=== PATIENT | male | born 1970 | race Caucasian/White ===

== ENCOUNTER 2024-07-28 08:36 | Outpatient (AMB) | payer OTHER, SELFPAY ==
--- NOTE | 2024-07-28 08:37 | A.OFFVIS_ITS ---
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 Pt states his pain is at a 5 usually and states the pain shoots to his left buttock. Pt also states he has numbness and tingling in his right great toe. Allergies No Known Allergies Allergy (Verified 07/28/24 08:38) Medication List - Last Reconciled 07/28/24 by Kiana George MD baclofen 5 mg PO TID duloxetine 60 mg PO DAILY gabapentin 600 mg PO TID meloxicam 15 mg PO DAILY HPI Comments Details: Prior to injury, did not have any similar severe back pain. After injury, he's been having lower back, mostly right side, can go to left buttocks, can radiate to the big toe. Reports burning and numbness on right big toe, constant. Worse burning on the right foot/big toe when he sits. Feels weakness going up the stairs. Limps when he walks a lot. Been going to PT. Walking improved with exercise and PT. Treatment done so far: PT Chronic medications such as baclofen and gabapentin, for chronic neck pain. History of cervical spine surgery in [place] 7 years ago. Reviewed notes from PT, last seen 07/13/2024. Per notes, x-ray was done at the ER which showed disc space narrowing L5-S1. [facility] Medical History (Updated 07/28/24 @ 09:17 by Kiana George MD) Lumbar disc herniation with radiculopathy Acute lumbar radiculopathy Review of Systems Const All systems reviewed & are unremarkable except as noted in HPI and below Physical Exam Constitutional: Patient appears to be in no acute distress, well nourished and well developed. Patient was appropriately conversant and oriented. Good historian. MSK: No specific abnormalities found on inspection of the spine and all extremities. No pain with palpation over the lumbar area. Lumbar ROM was full. Bilateral hip, knee and ankle ROM WNL. No ligamentous laxity or crepitance. No increased effusion. Straight-leg raising test positive right. FABERE test positive right. Right big toe/EHL 4/5 only. No increased tone noted. Neurological: Right big toe/EHL 4/5 only. Rest of MMT 5/5. Britton?s negative bilaterally. Babinski was down going bilaterally. Clonus was negative. Gait is non-antalgic without loss of balance. Results Reviewed Results Reviewed: I reviewed records from the following: PCP PT notes Assessment & Plan Assessment & Plan (1) Acute lumbar radiculopathy: Code(s): M54.16 - Radiculopathy, lumbar region Category: Medical (2) Lumbar disc herniation with radiculopathy: Code(s): M51.16 - Intervertebral disc disorders with radiculopathy, lumbar region Category: Medical Plan Suspect he had acute lumbar radiculopathy from lumbar disc herniation, affecting right L5 nerve root. He has weakness in right big toe extension. Although his pain and walking has improved with PT, we would need further imaging for prognostication and return to work goals. Patient had undergone adequate conservative management including [PT] without complete improvement of condition. It would be reasonable to obtain further imaging such as MRI. An MRI would help rule out any serious condition, guide treatment and assess prognosis for recovery. Specifically ruling out right L5-S1 disc herniation. Continue PT and current medications for now. Out of work for now until we get an MRI. Assessment and plan discussed with patient, and patient was agreeable. All questions were answered thoroughly. Follow up in 4 weeks or after MRI. Kiana George MD, HENRI Board Certified, [place] Board [employer] and Rehabilitation (ABPMR) Board Certified, [place] Board [employer] Electrodiagnostic Medicine (ABEM) Orders: Orders MR lumbar spine wo con Today M51.16 - Intervertebral disc disorders with radiculopathy, lumbar region, M54.16 - Radiculopathy, lumbar region Coding Level of Care Code New Pt Level 4 (43669) Diagnoses Acute lumbar radiculopathy M54.16 Lumbar disc herniation with radiculopathy M51.16
== END 2024-07-28 09:08 | disposition home or self-care (01) ==
PROVIDERS: PCP Physician Assistant Medical; Visit Provider Physical Medicine & Rehabilitation
DX: M51.16 Intervertebral disc disorders with radiculopathy, lumbar region (principal)
CPT/HCPCS: 99204

== ENCOUNTER → 2024-07-28 08:36 | Outpatient (BNVA) | payer OTHER, SELFPAY | PROVIDERS: PCP Physician Assistant Medical; Visit Provider Physical Medicine & Rehabilitation | DX: M51.16 Intervertebral disc disorders with radiculopathy, lumbar region (principal) | CPT/HCPCS: 99202 ==

== ENCOUNTER 2024-08-06 10:04 | Outpatient (REF) | payer OTHER, MEDICAID, SELFPAY ==
--- NOTE | ~2024-08-06 | MR_ITS ---
EXAMINATION: MR LUMBAR SPINE WITHOUT CONTRAST CLINICAL INFORMATION: Low back pain, rule out L5-S1 disc herniation. Radiation/radicular symptoms to right leg and toes. COMPARISON: No prior available. TECHNIQUE: Multiplanar multisequence MR imaging of the lumbar spine was done without IV contrast. Examination performed on a 1.5 Keyla Siemens magnet. Standard sequences utilized. Please note, due to [facility] contractual, systems, and staffing issues, an [facility] radiologist was not available for review and dictation of this case until 08/21/2024. FINDINGS: CORONAL ALIGNMENT: There is a trace dextroconvex scoliosis. This could be positional. SAGITTAL ALIGNMENT: -Mild straightening of the normal lordosis. -There is a 4 mm retrolisthesis L4 on L5. -Alignment otherwise anatomic. LUMBOSACRAL JUNCTION: -Normal. There are 5 egc-kuo-omzmrao lumbar-type vertebral bodies. VERTEBRAL BODIES/BONE MARROW: -There are no compression deformities. -There are prominent edematous endplate changes present at L4-5 and L5-S1. -No abnormal infiltrating or suspicious bone marrow signal. DISCS: -Severe loss of disc height and signal L5-S1 with disc vacuum. -Moderate loss of disc height and signal at L4-5 with disc vacuum. -Disc levels above L4 are normal. SPINAL CANAL: -No abnormal developmental findings. CONUS MEDULLARIS: -Terminates at L1. Morphology and signal is normal. INTRADURAL NERVE ROOTS: -Within normal limits. No masses or clumping. Axial Disc Space Images: T12-L1: No central canal or neural foraminal narrowing. Normal facets. L1-L2: No central canal or neural foraminal narrowing. Normal facets. L2-L3: Subtle bilateral foraminal protrusions of disc material with mild annular fissuring. Mild hypertrophic facet changes bilaterally. No central canal or neural foraminal narrowing. L3-L4: Subtle bilateral left greater than right foraminal protrusions of disc material with associated annular fissuring. There are mild to moderate hypertrophic degenerative facet changes bilaterally, with mild posterior ligamentous infolding/thickening. Combination of findings is resulting in mild central canal narrowing, mild bilateral subarticular recess narrowing, and mild right and menx-ii-lkuvcjri left neural foraminal narrowing. There is contact with no significant deviation of the exiting left L3 root. L4-L5: 4 mm retrolisthesis at this level. Moderate degenerative hypertrophic facet changes bilaterally with bilateral facet joint effusions. Diffuse bulging disc present concentrically involving both foraminal zones with right para midline annular fissuring and a right lateral associated small extrusion of disc material with inferior migration to the superior third of the L5 vertebral body. (Sagittal series 6, image 8). There is posterior ligamentous thickening/infolding. Combination of findings results in zcwm-xc-uikvlqjx central canal stenosis, moderate bilateral subarticular recess stenosis with contact and mild deviation of the right greater than left traversing L5 roots. There is moderate to severe left and moderate right neural foraminal narrowing. There is contact and possible mild impingement of the exiting LEFT L4 root. Mild contact with no definite impingement of the exiting RIGHT L4 root. L5-S1: There is a diffuse disc osteophytic bulge extending into both foraminal zones and bilateral lateral to foramen. There is a superimposed right paracentral, lateral, and proximal foraminal extrusion of disc material. There are mild to moderate hypertrophic degenerative facet changes with mild posterior ligamentous infolding. There is mass effect and deviation of the traversing right S1 root within the subarticular recess. There is severe right greater than left neural foraminal encroachment with flattening and impingement of the exiting right L5 root and mild mass effect with probable mild impingement of the exiting left L5 root. IMAGED SI JOINTS: Mild to moderate degenerative arthrosis. PARAVERTEBRAL AND INCLUDED EXTRASPINAL SOFT TISSUES: Normal. Limited by a saturation band. No abnormalities observed. MR/MR lumbar spine wo con IMPRESSION: 1. Lumbar spondylosis relatively confined to L4-5 and L5-S1. Significant disc protrusions/extrusions at these levels. Mass effect upon several nerve roots bilaterally, worse on the right. See above for details. 2. Edematous endplate changes at L4-5 and L5-S1. Severe associated disc degeneration greater at L5-S1. 3. There is a 4 mm, grade 1, anterolisthesis L4 on L5 which appears based upon degenerative disc and facet changes. 4. Refer to the body of the report for details and ancillary findings. Electronically signed by: Alessio Rosenthal MD 08/21/2024 10:58 AM EDT
== END 2024-08-06 10:05 | disposition home or self-care (01) ==
LOC: HO.MRI 10:04
PROVIDERS: PCP Internal Medicine; Visit Provider Physical Medicine & Rehabilitation
DX: M51.16 Intervertebral disc disorders with radiculopathy, lumbar region (principal)
CPT/HCPCS: 72148

== ENCOUNTER → 2024-08-06 10:15 | Outpatient (BNV) | payer OTHER, MEDICAID, SELFPAY | PROVIDERS: PCP Internal Medicine; Visit Provider Radiology Diagnostic Radiology | DX: M54.50 Low back pain, unspecified (principal) | CPT/HCPCS: 72148 ==

== ENCOUNTER 2024-08-26 09:47 | Outpatient (AMB) | payer OTHER, MEDICAID, SELFPAY ==
--- NOTE | 2024-08-26 09:55 | MHC.OFFVIS ---
Intake Visit Reasons: OV low back/sciatica pain Intake Note: Kirk is a 54 year old male who presents to the office today for a MRI review of his lumbar spine. MRI done on 08/06/24. Pt states he is still having pain, no changes at the moment. Allergies No Known Allergies Allergy (Verified 08/26/24 10:11) HPI Comments Details: Prior to injury, did not have any similar severe back pain. After injury, he's been having lower back, mostly right side, can go to left buttocks, can radiate to the big toe. Reports burning and numbness on right big toe, constant. Worse burning on the right foot/big toe when he sits. Feels weakness going up the stairs. Limps when he walks a lot. Been going to PT. Walking improved with exercise and PT. Treatment done so far: PT Chronic medications such as baclofen and gabapentin, for chronic neck pain. History of cervical spine surgery in [place] 7 years ago. Reviewed notes from PT, last seen 07/13/2024. Per notes, x-ray was done at the ER which showed disc space narrowing L5-S1. Here to discuss MRI. Same pain level. Noted more weakness on right toes. [facility] Medical History (Updated 07/28/24 @ 09:17 by Kiana George MD) Lumbar disc herniation with radiculopathy Acute lumbar radiculopathy Physical Exam Constitutional: Patient appears to be in no acute distress, well nourished and well developed. Patient was appropriately conversant and oriented. Good historian. MSK: No specific abnormalities found on inspection of the spine and all extremities. Indicates pain on lumbar area, denies pain on SI joint or GT. Lumbar ROM was full. Bilateral hip, knee and ankle ROM WNL. No ligamentous laxity or crepitance. No increased effusion. Straight-leg raising test positive right. FABERE test positive right. Right big toe/EHL 4/5 only. No increased tone noted. Neurological: Right big toe/EHL 4/5 only. Rest of MMT 5/5. Britton?s negative bilaterally. Babinski was down going bilaterally. Clonus was negative. Gait is non-antalgic without loss of balance. Results Reviewed Results Reviewed: We were able to look at images together. Disc extrusion could be seen right L4-5, herniation/bulge L5-S1. Ordering Physician: Kiana Peck Date of Service: 08/06/24 Procedure(s): MR lumbar spine wo con Accession Number(s): [id number] cc: Jairon Hines III, MD; Kiana Peck~ EXAMINATION: MR LUMBAR SPINE WITHOUT CONTRAST CLINICAL INFORMATION: Low back pain, rule out L5-S1 disc herniation. Radiation/radicular symptoms to right leg and toes. COMPARISON: No prior available. TECHNIQUE: Multiplanar multisequence MR imaging of the lumbar spine was done without IV contrast. Examination performed on a 1.5 Keyla Siemens magnet. Standard sequences utilized. Please note, due to [facility] contractual, systems, and staffing issues, an [facility] radiologist was not available for review and dictation of this case until 08/21/2024. FINDINGS: CORONAL ALIGNMENT: There is a trace dextroconvex scoliosis. This could be positional. SAGITTAL ALIGNMENT: -Mild straightening of the normal lordosis. -There is a 4 mm retrolisthesis L4 on L5. -Alignment otherwise anatomic. LUMBOSACRAL JUNCTION: -Normal. There are 5 nfr-cab-pzsgklu lumbar-type vertebral bodies. VERTEBRAL BODIES/BONE MARROW: -There are no compression deformities. -There are prominent edematous endplate changes present at L4-5 and L5-S1. -No abnormal infiltrating or suspicious bone marrow signal. DISCS: -Severe loss of disc height and signal L5-S1 with disc vacuum. -Moderate loss of disc height and signal at L4-5 with disc vacuum. -Disc levels above L4 are normal. SPINAL CANAL: -No abnormal developmental findings. CONUS MEDULLARIS: -Terminates at L1. Morphology and signal is normal. INTRADURAL NERVE ROOTS: -Within normal limits. No masses or clumping. Axial Disc Space Images: T12-L1: No central canal or neural foraminal narrowing. Normal facets. L1-L2: No central canal or neural foraminal narrowing. Normal facets. L2-L3: Subtle bilateral foraminal protrusions of disc material with mild annular fissuring. Mild hypertrophic facet changes bilaterally. No central canal or neural foraminal narrowing. L3-L4: Subtle bilateral left greater than right foraminal protrusions of disc material with associated annular fissuring. There are mild to moderate hypertrophic degenerative facet changes bilaterally, with mild posterior ligamentous infolding/thickening. Combination of findings is resulting in mild central canal narrowing, mild bilateral subarticular recess narrowing, and mild right and banh-ht-mgrepihi left neural foraminal narrowing. There is contact with no significant deviation of the exiting left L3 root. L4-L5: 4 mm retrolisthesis at this level. Moderate degenerative hypertrophic facet changes bilaterally with bilateral facet joint effusions. Diffuse bulging disc present concentrically involving both foraminal zones with right para midline annular fissuring and a right lateral associated small extrusion of disc material with inferior migration to the superior third of the L5 vertebral body. (Sagittal series 6, image 8). There is posterior ligamentous thickening/infolding. Combination of findings results in wktn-vc-qdzqazps central canal stenosis, moderate bilateral subarticular recess stenosis with contact and mild deviation of the right greater than left traversing L5 roots. There is moderate to severe left and moderate right neural foraminal narrowing. There is contact and possible mild impingement of the exiting LEFT L4 root. Mild contact with no definite impingement of the exiting RIGHT L4 root. L5-S1: There is a diffuse disc osteophytic bulge extending into both foraminal zones and bilateral lateral to foramen. There is a superimposed right paracentral, lateral, and proximal foraminal extrusion of disc material. There are mild to moderate hypertrophic degenerative facet changes with mild posterior ligamentous infolding. There is mass effect and deviation of the traversing right S1 root within the subarticular recess. There is severe right greater than left neural foraminal encroachment with flattening and impingement of the exiting right L5 root and mild mass effect with probable mild impingement of the exiting left L5 root. IMAGED SI JOINTS: Mild to moderate degenerative arthrosis. PARAVERTEBRAL AND INCLUDED EXTRASPINAL SOFT TISSUES: Normal. Limited by a saturation band. No abnormalities observed. MR/MR lumbar spine wo con IMPRESSION: 1. Lumbar spondylosis relatively confined to L4-5 and L5-S1. Significant disc protrusions/extrusions at these levels. Mass effect upon several nerve roots bilaterally, worse on the right. See above for details. 2. Edematous endplate changes at L4-5 and L5-S1. Severe associated disc degeneration greater at L5-S1. 3. There is a 4 mm, grade 1, anterolisthesis L4 on L5 which appears based upon degenerative disc and facet changes. 4. Refer to the body of the report for details and ancillary findings. Electronically signed by: Alessio Rosenthal MD 08/21/2024 10:58 AM EDT RP Assessment & Plan Assessment & Plan (1) Lumbar disc herniation with radiculopathy: Code(s): M51.16 - Intervertebral disc disorders with radiculopathy, lumbar region Category: Medical (2) Acute lumbar radiculopathy: Code(s): M54.16 - Radiculopathy, lumbar region Category: Medical Plan Given MRI findings and worsening weakness in right foot, it would be reasonable to refer him to Neurosurgery to evaluate surgical options at this point. He has undergone necessary conservative management including PT. if surgery is not recommended, then patient will consider lumbar injections. Assessment and plan discussed with patient, and patient was agreeable. All questions were answered thoroughly. Kiana George MD, HENRI Board Certified, [place] Board [employer] and Rehabilitation (ABPMR) Board Certified, [place] Board [employer] Electrodiagnostic Medicine (ABEM) Orders: Referrals Neurosurgery Referral M51.16 - Intervertebral disc disorders with radiculopathy, lumbar region, M54.16 - Radiculopathy, lumbar region Coding Level of Care Code Est Pt Level 4 (18097) Diagnoses Lumbar disc herniation with radiculopathy M51.16 Acute lumbar radiculopathy M54.16
== END 2024-08-26 10:37 | disposition home or self-care (01) ==
PROVIDERS: PCP Physician Assistant Medical; Visit Provider Physical Medicine & Rehabilitation
DX: M51.16 Intervertebral disc disorders with radiculopathy, lumbar region (principal)
CPT/HCPCS: 99214

== ENCOUNTER → 2024-08-26 09:47 | Outpatient (BNVA) | payer OTHER, MEDICAID, SELFPAY | PROVIDERS: PCP Physician Assistant Medical; Visit Provider Physical Medicine & Rehabilitation | DX: M51.16 Intervertebral disc disorders with radiculopathy, lumbar region (principal) | CPT/HCPCS: 99212 ==

== ENCOUNTER 2025-02-04 08:19 | Outpatient (AMB) | payer OTHER, SELFPAY ==
--- NOTE | 2025-02-04 08:29 | A.OFFVIS_ITS ---
Vital Signs 02/04/25 08:38 Height 5 ft 8 in Weight 158 lb BMI 24.0 Intake Visit Reasons: WC - OV low back/sciatica pain Intake Note: Kirk 54 yr old male presents today for his W/C injury follow up visit for his lumbar disc herniation. At his last visit, it was discussed for patient to be seen with a neurologist and to consider injection if surgery is not recommend. Borwn verdin since his last visit he has seen Dr Tidwell at [facility] who recommended surgery and injection. Patient moved forward with cortisone injection about 1 week ago. Currently states he has not felt any different. Allergies No Known Allergies Allergy (Verified 02/04/25 08:39) Medication List - Last Reconciled 02/04/25 by Kiana George MD baclofen 5 mg PO TID duloxetine 60 mg PO DAILY escitalopram oxalate mg PO DAILY gabapentin 600 mg PO TID hydroxyzine HCl mg PO 3XD meloxicam 15 mg PO DAILY HPI Comments Details: Prior to injury, did not have any similar severe back pain. After injury, he's been having lower back, mostly right side, can go to left buttocks, can radiate to the big toe. Reports burning and numbness on right big toe, constant. Worse burning on the right foot/big toe when he sits. Feels weakness going up the stairs. Limps when he walks a lot. Treatment done so far: PT [facility] Chronic medications such as baclofen and gabapentin, for chronic neck pain. History of cervical spine surgery in [place] 7 years ago. Reviewed notes from PT, last seen 07/13/2024. Per notes, x-ray was done at the ER which showed disc space narrowing L5-S1. Given MRI findings and worsening weakness in right foot, I referred him to Neurosurgery to evaluate surgical options. He saw Dr. Jonah MALAGON who did recommend decompression surgery. Then Dr. Andersen who recommended a different approach, fusion, then also said trial injections and PT first prior to possible surgery. Then [facility] Reports that pain switched to left side, started 2 months after finished PT. Still with sensitivity on right foot/toes. He's been trying to stretching it out as taught from PT, which tends a lot. Pain seems to move around the back area. He has gone to [facility], already had epidural injection last week, no relief yet. As of work letter, I did write him extension of out of work note until seen today. He is interested to restart PT. [facility] Medical History (Updated 07/28/24 @ 09:17 by Kiana George MD) Lumbar disc herniation with radiculopathy Acute lumbar radiculopathy Social History (Updated 02/04/25 @ 08:41 by Jacqueline Myers [facility]) Current occupational status: unemployed Current occupation: rt hand Physical Exam Vital Signs: BMI result Body Mass Index 24.0 Constitutional: Patient appears to be in no acute distress, well nourished and well developed. Patient was appropriately conversant and oriented. Good historian. MSK: No specific abnormalities found on inspection of the spine and all extremities. Indicates pain on left lumbar area, but nontender to touch on spinous processes, facets, paraspinals, quadratus lumborum or SI joint. Lumbar ROM was full. Increased pain with extension. Bilateral hip, knee and ankle ROM WNL. No ligamentous laxity or crepitance. No increased effusion. Slump sit negative. 5/5 on lower extremities, including ankle dorsiflexion. No increased tone noted. Neurological: Britton?s negative bilaterally. Clonus was negative. Gait is non-antalgic without loss of balance. Results Reviewed Results Reviewed: Ordering Physician: Kiana Peck Date of Service: 08/06/24 Procedure(s): MR lumbar spine wo con Accession Number(s): [id number] cc: Jairon Hines III, MD; Kiana Peck~ EXAMINATION: MR LUMBAR SPINE WITHOUT CONTRAST CLINICAL INFORMATION: Low back pain, rule out L5-S1 disc herniation. Radiation/radicular symptoms to right leg and toes. COMPARISON: No prior available. TECHNIQUE: Multiplanar multisequence MR imaging of the lumbar spine was done without IV contrast. Examination performed on a 1.5 Keyla Siemens magnet. Standard sequences utilized. Please note, due to [facility] contractual, systems, and staffing issues, an [facility] radiologist was not available for review and dictation of this case until 08/21/2024. FINDINGS: CORONAL ALIGNMENT: There is a trace dextroconvex scoliosis. This could be positional. SAGITTAL ALIGNMENT: -Mild straightening of the normal lordosis. -There is a 4 mm retrolisthesis L4 on L5. -Alignment otherwise anatomic. LUMBOSACRAL JUNCTION: -Normal. There are 5 oys-bgf-mhenhgy lumbar-type vertebral bodies. VERTEBRAL BODIES/BONE MARROW: -There are no compression deformities. -There are prominent edematous endplate changes present at L4-5 and L5-S1. -No abnormal infiltrating or suspicious bone marrow signal. DISCS: -Severe loss of disc height and signal L5-S1 with disc vacuum. -Moderate loss of disc height and signal at L4-5 with disc vacuum. -Disc levels above L4 are normal. SPINAL CANAL: -No abnormal developmental findings. CONUS MEDULLARIS: -Terminates at L1. Morphology and signal is normal. INTRADURAL NERVE ROOTS: -Within normal limits. No masses or clumping. Axial Disc Space Images: T12-L1: No central canal or neural foraminal narrowing. Normal facets. L1-L2: No central canal or neural foraminal narrowing. Normal facets. L2-L3: Subtle bilateral foraminal protrusions of disc material with mild annular fissuring. Mild hypertrophic facet changes bilaterally. No central canal or neural foraminal narrowing. L3-L4: Subtle bilateral left greater than right foraminal protrusions of disc material with associated annular fissuring. There are mild to moderate hypertrophic degenerative facet changes bilaterally, with mild posterior ligamentous infolding/thickening. Combination of findings is resulting in mild central canal narrowing, mild bilateral subarticular recess narrowing, and mild right and osit-vi-ohyigpsu left neural foraminal narrowing. There is contact with no significant deviation of the exiting left L3 root. L4-L5: 4 mm retrolisthesis at this level. Moderate degenerative hypertrophic facet changes bilaterally with bilateral facet joint effusions. Diffuse bulging disc present concentrically involving both foraminal zones with right para midline annular fissuring and a right lateral associated small extrusion of disc material with inferior migration to the superior third of the L5 vertebral body. (Sagittal series 6, image 8). There is posterior ligamentous thickening/infolding. Combination of findings results in crpm-fs-fzhmivnv central canal stenosis, moderate bilateral subarticular recess stenosis with contact and mild deviation of the right greater than left traversing L5 roots. There is moderate to severe left and moderate right neural foraminal narrowing. There is contact and possible mild impingement of the exiting LEFT L4 root. Mild contact with no definite impingement of the exiting RIGHT L4 root. L5-S1: There is a diffuse disc osteophytic bulge extending into both foraminal zones and bilateral lateral to foramen. There is a superimposed right paracentral, lateral, and proximal foraminal extrusion of disc material. There are mild to moderate hypertrophic degenerative facet changes with mild posterior ligamentous infolding. There is mass effect and deviation of the traversing right S1 root within the subarticular recess. There is severe right greater than left neural foraminal encroachment with flattening and impingement of the exiting right L5 root and mild mass effect with probable mild impingement of the exiting left L5 root. IMAGED SI JOINTS: Mild to moderate degenerative arthrosis. PARAVERTEBRAL AND INCLUDED EXTRASPINAL SOFT TISSUES: Normal. Limited by a saturation band. No abnormalities observed. MR/MR lumbar spine wo con IMPRESSION: 1. Lumbar spondylosis relatively confined to L4-5 and L5-S1. Significant disc protrusions/extrusions at these levels. Mass effect upon several nerve roots bilaterally, worse on the right. See above for details. 2. Edematous endplate changes at L4-5 and L5-S1. Severe associated disc degeneration greater at L5-S1. 3. There is a 4 mm, grade 1, anterolisthesis L4 on L5 which appears based upon degenerative disc and facet changes. 4. Refer to the body of the report for details and ancillary findings. Electronically signed by: Alessio Rosenthal MD 08/21/2024 10:58 AM EDT RP Assessment & Plan Assessment & Plan (1) Lumbar disc herniation with radiculopathy: Code(s): M51.16 - Intervertebral disc disorders with radiculopathy, lumbar region Category: Medical (2) Acute lumbar radiculopathy: Code(s): M54.16 - Radiculopathy, lumbar region Category: Medical Plan The MRI was last done 08/06/2024, almost 6 months from now. On exam, I do not see anymore leg weakness. No red flags on exam. His pain has actually switched from right to left and back, which I suspect could be either muscular or SI joint imbalance contributing to pain. Different opinions have been obtained from different spine surgeons. He is waiting for a 3rd opinion. He has undergone a lumbar epidural injection just last week from [facility]. He is willing to return to physical therapy. None of the other doctors he has seen were willing to write his work note. If he was to stay with me, discussed what a outdoor guide outlook is. Also reassured that I have seen many patients wherein disc herniations have improved with nonsurgical treatment plan. So that would be the hope if he were to stay under my care. Referring him to physical therapy in [place], to work on any possible imbalance on SI joint and quadratus lumborum. Eventual goal is for work conditioning. Out of work note letter for 4 weeks, or until I see him again. Assessment and plan discussed with patient, and patient was agreeable. All questions were answered thoroughly. Follow up 4 weeks. Kiana George MD, HENRI Board Certified, [place] [employer] and [employer] (ABPMR) Board Certified, [place] [employer] Electro[employer] (ABEM) Orders: Orders PT Evaluation and Treatment Today M51.16 - Intervertebral disc disorders with radiculopathy, lumbar region, M54.16 - Radiculopathy, lumbar region Coding Level of Care Code Est Pt Level 4 (27350) Diagnoses Lumbar disc herniation with radiculopathy M51.16 Acute lumbar radiculopathy M54.16
[2025-02-04 08:38] VITALS: BMI 24.0
--- OUTSIDE RECORDS SUMMARY | 2025-02-04 08:42 | XMS_ITS | Encounter Summary ---
Author Organization [facility] Address [address] [place] [address] Care Team Providers Care C++ Quant Developer Name Role Phone Jairon Hines MD Primary Care Provider [phone] Reason for Visit * Reason Comments Annual Exam Last pe 08/2023, las t vision 2022, last dentist 2023, last colon 11/2023, last tdap, last flu Encounter Details Date Type Department Care Team (Late st Contact Info) Description 01/18/2025 3:00 PM EST Office Visit Adult Medicine [address] [address] Jairon Hnies MD [address] [place] [id number] Routine physical examination (Primary Dx); Screening for diabetes mellitus; Screening, lipid; Screening for malignant neoplasm of prostate; Need for vaccination against Streptococcus pneumoniae Social History Tobacco Use Types Packs/Day Years Used Date Smoking Tobacco: Every Day Cigarettes Smokeless Tobacco: Never Alcohol Use Standard Drinks/Week Comments No 0 (1 standard drink = 0.6 oz pur e alcohol) Housing Instability Answer Date Recorde d Are you worried that in the next 2 months you may not have stable housing? Yes 01/18/2025 Food Access & Nutrition Answer Date Rec orded Do you have access to a vari ety of food including fruits and vegetables? Yes 01/18/2025 Health Literacy Answer Date Recorded How often do you need to hav e someone help you when you read instructions, pamphlets, or other written material from your doctor or pharmacy? Sometimes 01/18/2025 Caregiver: How often do you need to have someone help you when you read instructions, pamphlets, or other written material from your doctor or pharmacy? Not on file 01/18/2025 Financial Risk Answer Date Recorded How hard is it for you to pa y for the very basics like food, housing, medical care, and air conditioning / heating? Hard 01/18/2025 Transportation Answer Date Recorded Has the lack of transportati on kept you from meetings, work, or from getting things needed for daily living? No Has the lack of transportati on kept you from medical appointments or from getting medications? No 01/18/2025 Social Isolation Answer Date Recorded How often do you feel lonely or isolated from th ose around you? Rarely 01/18/2025 Food Risk Answer Date Recorded Within the past 12 months we worried whether our food would run out before we got money to buy more. Patient declined 025 Within the past 12 months th e food we bought just didn't last and we didn't have money to get more. Patient declined 12/27 Dependent Care Answer Date Recorded Do you need help finding or paying for care for your loved ones. For example, children's zoo caretaker or elderly care for an older adult? No 01/18/2025 Education Answer Date Recorded Do you think completing more education or training, like finishing a GED, going to college, or learning a trade, would be helpful for you? Yes 01/18/2025 Employment and Income Answer Date Recor ded During the last four weeks, have you been actively looking for work? No 01/18/2025 Living Situation Answer Date Recorded What is your living situation? 0 01/18/2025 Sex and Gender Information Value Date Recorded Sex Assigned at Not on file Legal Sex Male 2:16 PM EST Gender Identity Not on file Sexual Orientation Not on file documented as of this encounter Last Filed Vital Signs Vital Sign Reading Time Taken Comments Blood Pressure 111/63 01/18/2025 3:07 PM EST Pulse 58 01/18/2025 3:07 PM EST Temperature 36.4 ??C (97.6 ??F) 01/18/2025 3:07 PM ES T Respiratory Rate - - Oxygen Saturation - - Inhaled Oxygen Concentration - - Weight 74.4 kg (164 lb) 01/18/2025 3:07 PM EST Height 174 cm (5' 8.5 ) 01/18/2025 3:07 PM EST Body Mass Index 24.57 01/18/2025 3:07 PM EST documented in this encounter Ordered Prescriptions Prescription Sig Dispense Quantity Refills Last Filled Start Date End Date meloxicam (MOBIC) 15 mg tabletIndications:R outine physical examination Take 1 tablet (15 mg total) by mouth 1 (one) time each day. 90 tablet 1 01/18/2025 documented in this encounter Progress Notes * Jairon Hines MD - 01/18/2025 3:00 PM EST CHIEF COMPLAINT: Annual Exam (Last pe 08/2023, last vision 2022, last dentist 2023, last colon 11/2023, last tdap, last flu) IDENTIFIER: Kirk Canales is a 54 y.o. old male. HPI: Patient presents today for annual physical exam. Pt last physical 2022 Pt is due or TDAP Pt due for pna vaccine Pt due for flu vaccine Pt had colonoscopy 2023 (+) tubular adenoma due to repeat 2028 Pt with chronic pain 2nd to worker's comp injury 05/25/2024 Pt as a result also with anxiety. Pt currently for his anxiety is on lexapro 10 mg and atarax pt isusing this tid. Pt notes anxiety is tolerable and sleeping and well Pt last month was referred to neurosurgery and pain management for chronic back pain ROS: GENERAL: Negative for malaise, significant weight loss and fever HEENT: No changes in hearing or vision. No nosebleeds or other nasal problems NECK: Negative for lumps, goiter, pain, and significant neck swelling RESPIRATORY: No cough, wheezing or shortness of breath CARDIOVASCULAR: Negative for chest pain, leg swelling and palpitations GI: Negative for abdominal discomfort, changes in bowel habits, blood in stool or black stools : Negative for dysuria, frequency, and incontinence MUSCULOSKELETAL: chronic pain worker;s comp SKIN: No lesions, rash, or itching PSYCH: No sleep disturbances, depression or major stressors, See HPI HEMATOLOGY/LYMPHOLOGY: No prolonged bleeding, easy bruising, or swollen lymph nodes ENDOCRINE: Negative for cold or heat intolerance, polyuria, polydipsia and goiter NEURO: No persistent headache, fainting, seizures, strokes, TIAs, weakness, numbness or tingling The remainder of review of systems is noncontributory. PAST MEDICAL HISTORY: Patient Active Problem List Diagnosis Date Noted Ganglion cyst 03/28/2022 Cervical radiculopathy 03/27/2022 Adjustment disorder with depressed mood 04/22/2018 Cervicalgia 10/26/2016 Right shoulder injury 02/07/2016 SOCIAL HISTORY: Social History Tobacco Use Smoking status: Every Day Current packs/day: 0.50 Types: Cigarettes Smokeless tobacco: Never Substance Use Topics Alcohol use: No FAMILY HISTORY: Family Status Relation Name Status Mother Alive Father Alive No partnership data on file Family History Problem Relation Name Age of Onset Other (Other: Other) Mother alive and well Other (Other: Other) Father gout, hypertensio ACTIVE MEDICATIONS: Outpatient Medications Marked as Taking for the 01/18/25 encounter (Office Visit) with Jairon Hines MD Medication Sig Dispense Refill baclofen (LIORESAL) 5 mg tablet TAKE 5 MG BY MOUTH 3 TIMES DAILY. 270 tablet 1 escitalopram (LEXAPRO) 10 mg tablet Take 1 tablet (10 mg total) by mouth 1 (one) time each day. 30 each 5 gabapentin (NEURONTIN) 600 mg tablet Take 1 Tablet by mouth 3 times daily. hydrOXYzine HCL (ATARAX) 25 mg tablet TAKE 1 TABLET (25 MG TOTAL) BY MOUTH 3 TIMES A DAY NEEDED FOR ANXIETY 90 tablet 0 meloxicam (MOBIC) 15 mg tablet Take 1 tablet (15 mg total) by mouth 1 (one) time each day. ALLERGIES: Patient has no known allergies. PHYSICAL EXAM: Blood pressure 111/63, pulse 58, temperature 36.4 ??C (97.6 ??F), temperature source Temporal, height 1.74 m (68.5 ), weight 74.4 kg (164 lb). Body mass index is 24.57 kg/m??. BMI is 18.5 to 24.9 (within the normal range) and will be followed APPEARANCE: Alert and in no acute distress EYES: PERRLA, conjunctiva and sclera normal EARS: External ears normal. Canals clear. TMs normal. NOSE/SINUS: Nares normal. Septum midline. Mucosa normal. No drainage or sinus tenderness MOUTH/THROAT: no erythema, lesions, or exudates NECK: Neck supple, no adenopathy, thyroid symmetric and of normal size HEART: RRR with normal S1 and S2, no murmurs, no gallops, no JVD appreciated CHEST: non-tender LUNG: clear to auscultation bilaterally LYMPH NODES: grossly normal ABDOMEN: Bowel sounds normoactive, no bruits and soft, non-tender, without organomegaly or palpablemasses BACK: no pain to palpation EXTREMITIES: Extremities warm and well perfused without clubbing, cyanosis, or edema NEURO: Awake, alert and oriented x 3 SKIN: Skin color, texture, turgor normal. No rashes or lesions. LABS/IMAGING: No results found for: WBC , HGB , HCT , MCV No results found for: NA , K , CO2 , CL , BUN , GLU , ALB , ALKPHOS , TP Lab Results Component Value Date CHOL 195 08/26/2023 LDL 96 08/26/2023 HDL 65 08/26/2023 TRIG 174 (A) 08/26/2023 Psa 2.6 08/2023 IMPRESSION: 1. Routine physical examination 2. Screening for diabetes mellitus 3. Screening, lipid 4. Screening for malignant neoplasm of prostate 5. Need for vaccination against Streptococcus pneumoniae PLAN: normal physical exam d/w pt monthly testicular exam and seatbelt use. Will check CBC, CMP,and FLP. d/w patient the risk and benefit of checking psa pt is willing to have test done D/w pt immunizations will immunize as needed Tdap given today 2. 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 Pt to f/u one year to repeat the physical Orders Placed This Encounter Procedures Pneumococcal conjugate 20 valent (Prevnar 20, PCV 20) 2mo and older CBC and differential Standing Status: Future Standing Expiration Date: 01/18/2026 Lipid panel with reflex to direct LDL Standing Status: Future Standing Expiration Date: 01/18/2026 Comprehensive metabolic panel Standing Status: Future Standing Expiration Date: 01/18/2026 Prostate specific antigen screen Standing Status: Future Standing Expiration Date: 01/18/2026 Jairon Hines MD on 01/18/2025 at 1:45 PM EST documented in this encounter Plan of Treatment Not on file documented as of this encounter Results * Prostate specific antigen screen (01/18/2025 3:49 PM EST) PSA 2.16 0.00 - 4.00 ng/mL LAB CHEMISTRY METHOD 01/18/2025 6:35 PM [facility] Blood Venous blood specimen / Unknown Venipuncture / Unknown 01/18/2025 3:49 PM EST 01/18/2025 3:49 PM EST Narrative [facility] - 01/18/2025 6:35 PM EST The Siemens [employer] Chemiluminescent Immunoassay is used. Results obtained with different assay methods or kits cannot be used interchangeably. Results cannot be interpreted as absolute evidence of the presence or absence of malignant disease. us Jairon Hines MD LAB BLOOD ORDERABLES Final Resu lt [facility] [address] [place] [address], * Comprehensive metabolic panel (01/18/2025 3:49 PM EST) Pathologist [facility] Sodium 139 133 - 145 mmol/L LAB CHEMISTRY METHOD 01/18/2025 6:23 PM [facility] Potassium 4.3 3.5 - 5.5 mmol/L LAB CHEMISTRY METHOD 01/18/2025 6:23 PM [facility] Chloride 105 96 - 110 mmol/L LAB CHEMISTRY METHOD 01/18/2025 6:23 PM [facility] CO2 27 21 - 32 mmol/L LAB CHEMISTRY METHOD 01/18/2025 6:23 PM [facility] Anion Gap 7 3 - 11 LAB CHEMISTRY METHOD 01/18/2025 6:23 PM [facility] Glucose 76 70 - 100 mg/dL LAB CHEMISTRY METHOD 01/18/2025 6:23 PM [facility] BUN 12 5 - 25 mg/dL LAB CHEMISTRY METHOD 01/18/2025 6:23 PM [facility] Creatinine 0.90 0.70 - 1.30 mg/dL LAB CHEMISTRY METHOD 01/18/2025 6:23 PM [facility] eGFR 103 >=60 mL/min/1. 73m2 LAB CHEMISTRY METHOD 01/18/2025 6:23 PM [facility] Comment:Calculation based on the??Chronic Kidney Disease Epidemiology Collaboration (CKD-EPI) equation refit??without adjustment for race. BUN/Creatinine Ratio 13.3 LAB CHEMISTRY METHOD 01/18/2025 6:23 PM [facility] Calcium 9.7 8.5 - 10.5 mg/dL LAB CHEMISTRY METHOD 01/18/2025 6:23 PM [facility] AST (SGOT) 25 10 - 42 unit/L LAB CHEMISTRY METHOD 01/18/2025 6:23 PM [facility] ALT (SGPT) 39 10 - 60 unit/L LAB CHEMISTRY METHOD 01/18/2025 6:23 PM [facility] Alkaline Phosphatase 86 42 - 121 unit/L LAB CHEMISTRY METHOD 01/18/2025 6:23 PM [facility] Total Protein 7.7 6.0 - 8.0 g/dL LAB CHEMISTRY METHOD 01/18/2025 6:23 PM [facility] Albumin 4.3 3.2 - 5.0 g/dL LAB CHEMISTRY METHOD 01/18/2025 6:23 PM [facility] Total Bilirubin 0.5 0.0 - 1.4 mg/dL LAB CHEMISTRY METHOD 01/18/2025 6:23 PM [facility] Blood Venous blood specimen / Unknown Venipuncture / Unknown 01/18/2025 3:49 PM EST 01/18/2025 3:49 PM EST us Jairon Hines MD LAB BLOOD ORDERABLES Final Resu lt [facility] [address] [place] [address], [place] [phone] * (ABNORMAL) Lipid panel with reflex to direct LDL (01/18/2025 3:49 PM EST) Cholesterol 225(H) 0 - 200 mg/dL LAB CHEMISTRY METHOD 01/18/2025 6:23 PM EST [facility] Triglycerides 302(H) 0 - 150 mg/dL LAB CHEMISTRY METHOD 01/18/2025 6:23 PM EST [facility] HDL 60 >=40 mg/dL LAB CHEMISTRY METHOD 01/18/2025 6:23 PM EST [facility] LDL Calculated 105(H) 0 - 100 mg/dL LAB CHEMISTRY METHOD 01/18/2025 6:23 PM EST [facility] VLDL Cholesterol Luis Fernando 60.4 mg/dL LAB CHEMISTRY METHOD 01/18/2025 6:23 PM EST [facility] Non HDL Chol. (LDL+VLDL) 165(H) <145 mg/dL LAB CHEMISTRY METHOD 01/18/2025 6:23 PM EST [facility] Chol/HDL Ratio 3.8 0.0 - 4.4 LAB CHEMISTRY METHOD 01/18/2025 6:23 PM EST [facility] Blood Venous blood specimen / Unknown Venipuncture / Unknown 01/18/2025 3:49 PM EST 01/18/2025 3:49 PM EST us Jairon Hines MD LAB BLOOD ORDERABLES Final Resu lt [facility] [address] [place] [address], [place] [phone] documented in this encounter Visit Diagnoses Diagnosis Routine physical examination- Primary Routine general medical examination at a health care facility Screening for diabetes mellitus Screening, lipid Screening for malignant neoplasm of prostate Need for vaccination against Streptococcus pneumoniae documented in this encounter Discontinued Medications Medication Sig Discontinue Reason Start Date End Da te meloxicam (MOBIC) 15 mg tablet Take 1 tablet (15 mg total) by mouth 1 (one) time each day. Reorder 04/23/2024 01/18/2025 documented as of this encounter Orders Immunization/Injection Count Last Ordered Date First Ordered Date PNEUMOCOCCAL CONJUGATE 20 VA LENT (PREVNAR 20, PCV 20) 2MO AND OLDER 1 01/18/2025 documented in this encounter Additional Health Concerns Assessment Noted Time PHQ-9 Depression Total Score: 19 025 3:06 PM EST documented as of this encounter Care Teams C++ Quant Developer Relationship Specialty Start Date End Date Jairon Hines MD [address] [place] [id number] PCP - General Internal Medicine 10/15/17 documented as of this encounter
--- OUTSIDE RECORDS SUMMARY | 2025-02-04 08:43 | XMS_ITS ---
Author Organization [address] Address [address] [place] [phone] Phone Care Team Providers Care Hearing Aid Assembly Supervisor Name Role Phone Jairon Hines MD Primary Care Provider [phone] Director Of Property Management Care Management Status:Identified (Enrolling) Start date:01/26/2025 Enrollment reason:Identified using claims or encounter data Overview AWV - depression screening Case Team Name Relationship Phone Nancy Mak [facility] Risk Reduction Counselor(Responsible St aff) [phone] Continued Care and Services Coordination
--- OUTSIDE RECORDS SUMMARY | 2025-02-04 08:43 | XMS_ITS | Clinical Summary ---
Author Organization [facility] [address] [place] [address] [place] [phone] Phone Care Team Providers Care Events Administrative Assistant Name Role Phone Jairon Hines MD Primary Care Provider [phone] Allergies No known active allergies Medications baclofen (LIORESAL) 5 mg tablet TAKE 5 MG BY MOUTH 3 TIMES DAILY. 270 tablet 1 10/05/20 24 Active gabapentin (NEURONTIN) 600 mg tablet Take 1 Tablet by mouth 3 times daily. 07/16/20 24 Active escitalopram (LEXAPRO) 10 mg tablet Take 1 tablet (10 mg total) by mouth 1 (one) time each day. 30 each 5 11/24/20 24 025 Active hydrOXYzine HCL (ATARAX) 25 mg tablet TAKE 1 TABLET (25 MG TOTAL) BY MOUTH 3 TIMES A DAY NEEDED FOR ANXIETY 90 tablet 01/06/20 25 Active meloxicam (MOBIC) 15 mg tabletIndicatio ns:Routine physical examination Take 1 tablet (15 mg total) by mouth 1 (one) time each day. 90 tablet 1 01/18/20 25 Active meloxicam (MOBIC) 15 mg tablet Take 1 tablet (15 mg total) by mouth 1 (one) time each day. 04/23/20 24 025 Discontinued(Re order) hydrOXYzine HCL (ATARAX) 25 mg tablet Take 1 tablet (25 mg total) by mouth 3 (three) times a day if needed for anxiety. 60 each 1 11/24/20 24 025 Discontinued Active Problems Problem Noted Date Diagnosed Date Ganglion cyst 03/28/2022 Cervical radiculopathy 03/27/2022 Adjustment disorder with depressed mood 04/22/20 18 Cervicalgia 10/26/2016 Right shoulder injury 02/07/2016 Encounters Date Type Department Care Team Description 01/18/2025 3:00 PM EST Office Visit Adult [address] [phone] Jairon Hines MD Routine physical examination (Primary Dx); Screening for diabetes mellitus; Screening, lipid; Screening for malignant neoplasm of prostate; Need for vaccination against Streptococcus pneumoniae 12/31/2024 8:00 AM EST Office Visit Adult [address] [phone] Livia Marin PA Lumbar radiculopathy (Primary Dx); Insomnia, unspecified type; Anxiety 11/24/2024 4:30 PM EST Office Visit [address] [phone] Jarion Hines MD Anxiety (Primary Dx); Primary insomnia; Lumbar radiculopathy from Last 3 Months Immunizations Name Administration Dates Next Due Pneumococcal conjugate 20 va lent (Prevnar 20, PCV 20) 2mo and older 01/18/2025 Surgical History Surgery Date Site/Laterality Comments MULTIPLE TOOTH EXTRACTIONS PROCEDURE: HISTORICAL DENTAL EXTRACTION OTHER SURGICAL HISTORY PROCEDURE: CT UNLISTED PROCEDURE NECK/THORAX; COMMENT: C5 * C67 Medical History Medical History Date Comments Right shoulder injury 02/07/2016 DX:Right s houlder injury Nerve pain DX:Nerve pain Muscle relaxation DX:Muscle rela xation Muscle inflammation DX:Muscle in flammation; COMMENT: right upper chest pain Family History Medical History Relation Name Comments Other: Other Father gout, hypertens io Other: Other Mother alive and well Relation Name Status Comments Father Alive Mother Alive Social History Tobacco Use Types Packs/Day Years Used Date Smoking Tobacco: Every Day Cigarettes Smokeless Tobacco: Never Tobacco Cessation:Ready to Q uit: Not Asked; Counseling Given: Not Answered Alcohol Use Standard Drinks/Week Comments No 0 [...] care for your loved ones. For example, child support case officer or elderly care for an older adult? [...] on file Sexual Orientation Not on file Obstetrics History Last Filed Vital Signs Vital Sign Reading Time Taken Comments Blood Pressure 111/63 01/18/2025 3:07 PM EST Pulse 58 01/18/2025 3:07 PM EST Temperature 36.4 ??C (97.6 ??F) 01/18/2025 3:07 PM ES T Respiratory Rate 17 11/24/2024 2:56 PM EST Oxygen Saturation 98% 12/31/2024 7:59 AM EST Inhaled Oxygen Concentration - - Weight 74.4 kg (164 lb) 01/18/2025 3:07 PM EST Height 174 cm (5' 8.5 ) 01/18/2025 3:07 PM EST Body Mass Index 24.57 01/18/2025 3:07 PM EST Plan of Treatment Health Maintenance Due Date Last Done Comments DTaP,Tdap,and Td Vaccines (1 - Tdap) 1991 Hepatitis B Vaccines (1 of 3 - 19+ 3-dose series) 1991 Zoster Vaccines (1 of 2) 2022 HIV Screening 10/24/2022 COVID-19 Vaccine (3 - 2023-2 5 season) 2024 04/11/2021, 03/20/2021 Influenza Vaccine (#1) 2024 Depression Screening 01/18/2026 01/18/2025, 07/04/2024 Social Influencers of Health Screening 01/18/2026 01/18/2025 Cholesterol Screening (Lipid Panel) 01/18/2030 01/18/2025, 08/26/2023 Colorectal Cancer Screening: Colonoscopy 12/25/2033 12/25/2023 Hepatitis C Screening Completed 08/26/2023 Pneumococcal Vaccine: 50+ Years Completed 01/18/2025 Pneumococcal Vaccine: Pediatrics (0 to 5 Years) and At-Risk Patients (6 to 64 Years) Completed 01/18/2025 HIB Vaccines Aged Out No longer eligi ble based on patient's age to complete this topic HPV Vaccines Aged Out No longer eligi ble based on patient's age to complete this topic Hepatitis A Vaccines Aged Out No long er eligible based on patient's age to complete this topic IPV Vaccines Aged Out No longer eligi ble based on patient's age to complete this topic MMR Vaccines Aged Out No longer eligi ble based on patient's age to complete this topic Meningococcal ACWY Vaccine Aged Out N o longer eligible based on patient's age to complete this topic Meningococcal B Vacine Aged Out No lo nger eligible based on patient's age to complete this topic RSV Immunization Patients Under 20 months Aged Out No longer eligible b ased on patient's age to complete this topic Varicella Vaccines Aged Out No longer eligible based on patient's age to complete this topic Procedures Procedure Name Priority Date/Time Associated Diagnosis Comments CBC WITH AUTO DIFFERENTIAL Routine 01/18/2025 3:49 PM EST Routine physical examination CBC AND DIFFERENTIAL Routine 01/18/2025 3:49 PM EST Routine physical examination COMPREHENSIVE METABOLIC PANEL Routine 01/18/2025 3:49 PM EST Screening for diabetes mellitus LIPID PANEL WITH REFLEX TO DIRECT LDL Routine 01/18/2025 3:49 PM EST Screening, lipid PROSTATE SPECIFIC ANTIGEN SCREEN Routine 01/18/2025 3:49 PM EST Screening for malignant neoplasm of prostate DEPRESSION SCREENING Routine 07/04/2024 COLONOSCOPY Routine 12/25/2023 HEPATITIS C SCREENING Routine 08/26/2023 from Last 3 Months or Most Recently Relevant to Health Maintenance Results * Prostate specific antigen screen (01/18/2025 3:49 PM EST) PSA 2.16 0.00 - 4.00 ng/mL LAB CHEMISTRY METHOD 01/18/2025 6:35 PM EST [facility] Blood Venous blood specimen / Unknown Venipuncture / Unknown 01/18/2025 3:49 PM EST 01/18/2025 3:49 PM EST Narrative [facility] - 01/18/2025 6:35 PM EST The Siemens Advia Centaur Chemiluminescent Immunoassay is used. Results obtained with different assay methods or kits cannot be used interchangeably. Results cannot be interpreted as absolute evidence of the presence or absence of malignant disease. us Jairon Hines MD LAB BLOOD ORDERABLES Final Resu lt [facility] [address] [place] [address], [place] [phone] * (ABNORMAL) Lipid panel with reflex to direct LDL (01/18/2025 3:49 PM EST) Cholesterol 225(H) 0 - 200 mg/dL LAB CHEMISTRY METHOD 01/18/2025 6:23 PM EST [facility] Triglycerides 302(H) 0 - 150 mg/dL LAB CHEMISTRY METHOD 01/18/2025 6:23 PM EST [facility] HDL 60 >=40 mg/dL LAB CHEMISTRY METHOD 01/18/2025 6:23 PM EST [facility] LDL Calculated 105(H) 0 - 100 mg/dL LAB CHEMISTRY METHOD 01/18/2025 6:23 PM EST [facility] VLDL Cholesterol Luis Fernando 60.4 mg/dL LAB CHEMISTRY METHOD 01/18/2025 6:23 PM EST [facility] Non HDL Chol. (LDL+VLDL) 165(H) <145 mg/dL LAB CHEMISTRY METHOD 01/18/2025 6:23 PM EST [facility] Chol/HDL Ratio 3.8 0.0 - 4.4 LAB CHEMISTRY METHOD 01/18/2025 6:23 PM EST [facility] Blood Venous blood specimen / Unknown Venipuncture / Unknown 01/18/2025 3:49 PM EST 01/18/2025 3:49 PM EST us Jairon Hines MD LAB BLOOD ORDERABLES Final Resu lt [facility] [address] [place] [address], [place] [phone] * CBC auto differential (01/18/2025 3:49 PM EST) WBC 8.7 4.8 - 10.8 K/mcL LAB HEMETOLOGY METHOD 01/18/2025 6:06 PM [facility] RBC 4.90 4.50 - 5.50 M/mcL LAB HEMETOLOGY METHOD 01/18/2025 6:06 PM [facility] Hemoglobin 15.0 13.5 - 17.5 g/dL LAB HEMETOLOGY METHOD 01/18/2025 6:06 PM [facility] Hematocrit 45.2 42.0 - 54.0 % LAB HEMETOLOGY METHOD 01/18/2025 6:06 PM [facility] MCV 91.7 79.0 - 98.0 FL LAB HEMETOLOGY METHOD 01/18/2025 6:06 PM [facility] MCH 30.4 27.0 - 32.0 pcg LAB HEMETOLOGY METHOD 01/18/2025 6:06 PM [facility] MCHC 33.2 32.0 - 37.0 g/dL LAB HEMETOLOGY METHOD 01/18/2025 6:06 PM [facility] RDW 13.6 11.0 - 15.0 % LAB HEMETOLOGY METHOD 01/18/2025 6:06 PM [facility] Platelets 341 130 - 400 K/mcL LAB HEMETOLOGY METHOD 01/18/2025 6:06 PM [facility] MPV 9.5 7.0 - 11.0 FL LAB HEMETOLOGY METHOD 01/18/2025 6:06 PM [facility] NRBC 0.0 <1.0 % LAB HEMETOLOGY METHOD 01/18/2025 6:06 PM [facility] NRBC Absolute 0.00 <0.10 K/mcL LAB HEMETOLOGY METHOD 01/18/2025 6:06 PM [facility] Neutrophils Relative 49.4 % LAB HEMETOLOGY METHOD 01/18/2025 6:06 PM [facility] Lymphocytes Relative 37.9 % LAB HEMETOLOGY METHOD 01/18/2025 6:06 PM [facility] Monocytes Relative 7.6 % LAB HEMETOLOGY METHOD 01/18/2025 6:06 PM [facility] Eosinophils Relative 4.0 % LAB HEMETOLOGY METHOD 01/18/2025 6:06 PM [facility] Basophils Relative 0.8 % LAB HEMETOLOGY METHOD 01/18/2025 6:06 PM [facility] Immature Granulocytes Relative 0.3 % LAB HEMETOLOGY METHOD 01/18/2025 6:06 PM [facility] Neutrophils Absolute 4.27 1.50 - 7.00 K/mcL LAB HEMETOLOGY METHOD 01/18/2025 6:06 PM [facility] Lymphocytes Absolute 3.29 1.00 - 5.00 K/mcL LAB HEMETOLOGY METHOD 01/18/2025 6:06 PM [facility] Monocytes Absolute 0.66 0.20 - 1.00 K/mcL LAB HEMETOLOGY METHOD 01/18/2025 6:06 PM [facility] Eosinophils Absolute 0.35 0.00 - 0.50 K/mcL LAB HEMETOLOGY METHOD 01/18/2025 6:06 PM [facility] Basophils Absolute 0.07 0.00 - 0.20 K/mcL LAB HEMETOLOGY METHOD 01/18/2025 6:06 PM [facility] Immature Granulocytes Absolute 0.03 0.00 - 0.03 K/mcL LAB HEMETOLOGY METHOD 01/18/2025 6:06 PM [facility] Blood Venous blood specimen / Unknown Venipuncture / Unknown 01/18/2025 3:49 PM EST 01/18/2025 3:49 PM EST us Jairon Hines MD LAB BLOOD ORDERABLES Final Resu lt [facility] [address] [place] [address], * Comprehensive metabolic panel (01/18/2025 3:49 PM EST) Sodium 139 133 - 145 mmol/L LAB CHEMISTRY METHOD 01/18/2025 6:23 PM [facility] Potassium 4.3 3.5 - 5.5 mmol/L LAB CHEMISTRY METHOD 01/18/2025 6:23 PM [facility] Chloride 105 96 - 110 mmol/L LAB CHEMISTRY METHOD 01/18/2025 6:23 PM [facility] CO2 27 21 - 32 mmol/L LAB CHEMISTRY METHOD 01/18/2025 6:23 PM [facility] Anion Gap 7 3 - 11 LAB CHEMISTRY METHOD 01/18/2025 6:23 PM [facility] Glucose 76 70 - 100 mg/dL LAB CHEMISTRY METHOD 01/18/2025 6:23 PM [facility] BUN 12 5 - 25 mg/dL LAB CHEMISTRY METHOD 01/18/2025 6:23 PM [facility] Creatinine 0.90 0.70 - 1.30 mg/dL LAB CHEMISTRY METHOD 01/18/2025 6:23 PM [facility] eGFR 103 >=60 mL/min/1. 73m2 LAB CHEMISTRY METHOD 01/18/2025 6:23 PM [facility] Comment:Calculation based on the??Chronic Kidney Disease Epidemiology Collaboration (CKD-EPI) equation refit??without adjustment for race. BUN/Creatinine Ratio 13.3 LAB CHEMISTRY METHOD 01/18/2025 6:23 PM [facility] Calcium 9.7 8.5 - 10.5 mg/dL LAB CHEMISTRY METHOD 01/18/2025 6:23 PM [facility] AST (SGOT) 25 10 - 42 unit/L LAB CHEMISTRY METHOD 01/18/2025 6:23 PM EST [facility] ALT (SGPT) 39 10 - 60 unit/L LAB CHEMISTRY METHOD 01/18/2025 6:23 PM [facility] Alkaline Phosphatase 86 42 - 121 unit/L LAB CHEMISTRY METHOD 01/18/2025 6:23 PM [facility] Total Protein 7.7 6.0 - 8.0 g/dL LAB CHEMISTRY METHOD 01/18/2025 6:23 PM EST [facility] Albumin 4.3 3.2 - 5.0 g/dL LAB CHEMISTRY METHOD 01/18/2025 6:23 PM [facility] Total Bilirubin 0.5 0.0 - 1.4 mg/dL LAB CHEMISTRY METHOD 01/18/2025 6:23 PM [facility] Blood Venous blood specimen / Unknown Venipuncture / Unknown 01/18/2025 3:49 PM EST 01/18/2025 3:49 PM EST Jairon Hines MD LAB BLOOD ORDERABLES Final Resu lt [facility] [address] [place] [address], * Depression Screening (07/04/2024) Pathologist Pending sale to [facility] Depression Screening Abstracted [facility] Provider HEALTH MAINTENANCE Final Result * Colonoscopy (12/25/2023) Pathologist Pending sale to [facility] Colonoscopy no interpretation , abstracted Anatomical Region Laterality Modality Other Historical [place] [facility] HEALTH MAINTENANCE Final Result * Hepatitis C Screening (08/26/2023) Pathologist Pending sale to [facility] Hepatitis C Screening Abstracted Historical [place] [facility] HEALTH MAINTENANCE Final Result from Last 3 Months or Most Recently Relevant to Health Maintenance Insurance [facility] Care Teams Events Administrative Assistant Relationship Specialty Start Date End Date Jairon Hines MD [address] [place] [address] [phone] PCP - General Internal Medicine 10/15/17
--- OUTSIDE RECORDS SUMMARY | 2025-02-04 08:43 | XMS_ITS | Data Portability ---
Author Organization [place] [facility] Address [address] [address] Care Team Providers Care Water Treatment Technician Name Role Phone JACINDA ROBERT Primary Care Provider [phone] Assessment No assessment recorded. Plan of Treatment Reminders Order Date Submit Date Provider Last Modified By Organization Details Last Modified Time Details Appointments Test Results 15 2024 08:15A M BALAJI Spann MD Not available Not available Not available Lab None recorded . Referral None recorded . Procedures None recorded . Surgeries None recorded . Imaging None recorded . Medication Orders None recorded . Patient TargetsNo targets recorded. Patient InstructionsNo instructions recorded. Reason for Referral None Reported. Results Created Date Observation Date Name Description Value Unit Range Abnormal Flag Note LastModifiedBy Organization Detail LastModifiedTime 12/30/1912/28/2024 MRI, head + neck + orbit s, w/wo contr ast Shield s MRI at [facility] Access ion Number : [id number] Vasu kelley Name: Kirk Canales Record Number : [id number] Date of : 1969 Date of Exam: 2024 Referr ing Physic erlin: Balaji Jarquin [facility] [address] [address] Exam: MR Orbits , Face, Neck (C-/C+ ) CPT 30417 Room Descri ption: [facility] 1.5 INDICA TION: Chroni c sialoa deniti s, evalua te for subman dibula r mass versus saliva ry stone. Additi onal histor y includ es low under the left genera l and under the tongue for a few months , painfu l when bendin g head to look downwa rd. TECHNI QUE: Multip lanar multis equenc e MRI of the neck was perfor med before and after the admini strati on of 14 mL of Dotare m. COMPAR LUBNA: MRI brain of 2020 FINDIN GS: Visual ized intrac ranial struct ures and orbits : Normal . Visual ized parana cayden sinuse s and mastoi ds: Mild mucosa l thicke eli of the parana cayden sinuse s is noted. Mastoi d air cells are clear. Mucosa l surfac es: Mucosa l surfac es appear normal and symmet ayde, includ ing the nasoph arynx, oral cavity , oropha rynx, hypoph arynx, larynx , and trache a. No nodula rity or hypere nhance ment is seen. Superf icial and deep neck spaces : Normal . Cervic al lymph nodes: Normal in size and morpho logy. Saliva ry glands : The bilate ral paroti d glands are symmet ayde. The bilate ral subman dibula r glands are unrema rkable with a slight ly larger right subman dibula r gland. Thyroi d gland: There is a subcen timete r T2 hyperi ntensi ty in the right thyroi d lobe. Otherw ise, the thyroi d gland is unrema rkable . Vascul ar struct ures: Major cervic al flow voids are mainta ined. Upper chest: No signif icant abnorm ality of the visual ized lung apices and upper medias tinum. Bones: Anteri or spinal fusion with instru mentat ion is noted at C6-C7. The skelet al struct ures are otherw ise unrema rkable . No suspic ious bone marrow lesion identi fied. IMPRES GENE: Unrema rkable subman dibula r glands with the right gland slight ly larger than the left. No abnorm al enhanc ement or suspic ious subman dibula r mass. If there is concer n for sialol ithias is, consid er a CT scan to evalua te for small calcul i. Otherw ise, unrema rkable MRI of the neck with and withou t contra st. Electr onical ly Signed By: Romy Anderson MD [facility] [address] [facility], [place], [address], 12/30/2024 16:59:55 Result Notes None recorded. Problems Name Problem SNOMED Code Status Onset Date Resolution Date Notes Provider Name and Address Organization Details Recorded Time Nicotine dependence 50079499 Active 2024 BALAJI Spann MD [address] [facility],[place] [address], [place], [phone], [facility] 11:12:23 Chronic sialadenitis 935465907 Active 2024 BALAJI Spann MD [address] [place] [address], [place], [phone], [facility] 11:19:52 Sublingual salivary gland swelling 017805191 Active 2024 BALAJI Spann MD [address] [place] [address], [place], [phone], [facility] 11:20:06 Problem Notes None recorded. Procedures Surgical History Date Name Laterality Status Provider Name and Address Organization Details Recorded Time 12/08/2024 FFL_RE completed BALAJI HERNANDEZ MD [address] [place] [address], [phone], [facility] 12/08/2024 11:21:18 Imaging Results Imaging Date Name Status LastModified by Organiz ation Details LastModified Time 12/28/2024 MRI, head + neck + orbits, w/wo contrast completed [facility] [address] [place], [address], 12/30/2024 16:59:55 Procedure Notes None recorded. Medical Equipment None Reported. Medications Name Sig Start Date Stop Date Status Note LastModified by Organization Details LastModified Time amoxicillin 500 mg capsule TAKE 2 CAPSULES BY MOUTH TWICE A DAY active Not Available Not Available No t Available gabapentin 600 mg tablet TAKE 1 TABLET BY MOUTH THREE TIMES A DAY active Not Available Not Available Not Available tizanidine 4 mg tablet TAKE 1 TABLET BY MOUTH EVERY 6 HOURS active Not Available Not Available No t Available clarithromyc in 500 mg tablet TAKE 1 TABLET BY MOUTH TWICE A DAY active Not Available Not Available No t Available meloxicam 15 mg tablet TAKE 1 TABLET BY MOUTH EVERY DAY active Not Available Not Available No t Available prednisone 20 mg tablet TAKE 2 TABLETS BY MOUTH EVERY DAY active Not Available Not Available No t Available methocarbamo l 750 mg tablet TAKE 1 TABLET BY MOUTH EVERY 6 HOURS NEEDED FOR MUSCLE SPASM active Not Available Not Available No t Available omeprazole 20 mg capsule,brittany yed release TAKE 1 CAPSULE BY MOUTH TWICE A DAY active Not Available Not Available No t Available hydroxyzine HCl 25 mg tablet TAKE 1 TABLET (25 MG TOTAL) BY MOUTH 3 TIMES A DAY NEEDED FOR ANXIETY active Not Available Not Available Not Available naproxen 500 mg tablet TAKE 1 TABLET BY MOUTH TWICE A DAY NEEDED FOR MODERATE PAIN *START 05/28 active Not Available Not Available No t Available oxycodone 5 mg tablet TAKE 1 TABLET BY MOUTH EVERY 6 HOURS NEEDED FOR SEVERE PAIN active Not Available Not Available Not Available escitalopram 10 mg tablet TAKE 1 TABLET BY MOUTH 1 TIME EACH DAY. active Not Available Not Available No t Available duloxetine 60 mg capsule,brittany yed release TAKE 1 CAPSULE BY MOUTH EVERY DAY active Not Available Not Available No t Available GaviLyte-G 236 gram-22.74 gram-6.74 gram-5.86 gram oral solution TAKE 8 OUNCE BY MOUTH DIRECTED FOLLOW PREP INSTRUCTION S GIVEN BY YOUR DOCTOR'S OFFICE active Not Available Not Available No t Available baclofen 5 mg tablet TAKE 1 TABLET BY MOUTH 3 TIMES DAILY. active Not Available Not Available No t Available Vitals Date Recorded Body height Body mass index (BMI) Body weight Provider Name and Address Organization Details Last Updated DateTime 12/08/2024 172.72 cm 23.6 kg/m2 13016.82 g Annette Riley [place] [facility] 12/08/2024 11:07:12 Social History None recorded. Functional Status None recorded. Mental Status None recorded. Family History Nothing Reported. Medical History No medical history recorded. Past Encounters Encounter ID Performer Location Encounter Start Date Encounter Closed Date Diagnosis/Indication Diagnosis SNOMED-CT Code Diagnosis ICD10 Code Diagnosis Note [id number] BALAJI HERNANDEZ MD [facility] [address] [phone] 12/08/2024 10:43:58 12/08/2024 11:20:45 Nicotine dependence 82633154 F17.200 I discussed smoking cessation. He hasn't had a cigarette in 4 days. Chronic sialadenitis 235 318146 K11.23 see below Sublingual salivary gland swelling 912095112 K11.9 On exam I noted he has prominent sublingual gland and submandibu lar duct on right, no palpable stones. I will order an MRI to better assess with f/u in 3-4 months to recheck. I don't palpable any stones or tumors but I would like an MRI to double check. Laryngosoc py was performed given his smoking history and no tumors or masses were seen. Health Concerns Section Related Observation LastModified by Organization Detai ls LastModified Time None Recorded Concern Status LastModified by Organization Details LastModified Time None Recorded Advance Directives Directive None Recorded Payers Encounter Date Sequence Insurance Name Policy Number Policy Adkins Covered Member ID Adkins Member ID Guarantor Name 12/08/2024 1 [facility] - [facility] (MEDICAID REPLACEMENT - HMO) BUSTERMS Kirk Canales [id number] Kirk Canales Notes Date Note Type Note Provider Name and Address Organization Details Recorded Time 12/08/2024 text/html he presents with swelling underneath the left side of his tongue. This was noted incidentally during a dental cleaning about 3 months ago. No associated pain. No swelling after he eats. No problems eating, drinking or chewing. He smokes tobacco. BALAJI HERNANDEZ MD [address] [place] [address], [phone], [facility] 12/08/2024 11:21:54
--- OUTSIDE RECORDS SUMMARY | 2025-02-04 08:43 | XMS_ITS ---
Author Name [facility] Organization Unknown Care Team Organization Name Specialty Phone Email Start Date End Garland johnson [facility], [facility] 08/17/2021 07/13/2024
== END 2025-02-04 09:04 | disposition home or self-care (01) ==
PROVIDERS: PCP Physician Assistant Medical; Visit Provider Physical Medicine & Rehabilitation
DX: M51.16 Intervertebral disc disorders with radiculopathy, lumbar region (principal); Z04.2 Encounter for examination and observation following work accident
CPT/HCPCS: 99214

== ENCOUNTER → 2025-02-04 08:20 | Outpatient (BNVA) | payer OTHER, SELFPAY | PROVIDERS: PCP Physician Assistant Medical; Visit Provider Physical Medicine & Rehabilitation | DX: M51.16 Intervertebral disc disorders with radiculopathy, lumbar region (principal) | CPT/HCPCS: 99212 ==

== ENCOUNTER 2025-03-05 08:45 | Outpatient (AMB) | payer OTHER, SELFPAY ==
--- NOTE | 2025-03-05 08:51 | MHC.OFFVIS ---
Intake Visit Reasons: O/V lumbar pain S/P PT Intake Note: Kirk 54 yr old male presents today for his W/C injury follow up visit for his lumbar disc herniation s/p P.T. Patient reports that he has been attending PT, stating he still feels sharp pain in legs while attending PT. He received a call with an approval for the lumbar surgery in [place]. Allergies No Known Allergies Allergy (Verified 03/05/25 08:55) Medication List - Last Reconciled 03/05/25 by Kiana George MD baclofen 5 mg PO TID duloxetine 60 mg PO DAILY escitalopram oxalate mg PO DAILY gabapentin 600 mg PO TID hydroxyzine HCl mg PO 3XD meloxicam 15 mg PO DAILY HPI Comments Details: Prior to injury, did not have any similar severe back pain. After injury, he's been having lower back, mostly right side, can go to left buttocks, can radiate to the big toe. Reports burning and numbness on right big toe, constant. Worse burning on the right foot/big toe when he sits. Feels weakness going up the stairs. Limps when he walks a lot. Treatment done so far: [facility] Chronic medications such as baclofen and gabapentin, for chronic neck pain. History of cervical spine surgery in [place] 7 years ago. Reviewed notes from PT, last seen 07/13/2024. Per notes, x-ray was done at the ER which showed disc space narrowing L5-S1. Given MRI findings and worsening weakness in right foot, I referred him to Neurosurgery to evaluate surgical options. Last visit, he informed me that he saw Dr. Jonah MALAGON who did recommend decompression surgery. Then Dr. Andersen who recommended a different approach, fusion, then also said trial injections and PT first prior to possible surgery. Then [facility] Since last seen, he has seen [place] [facility] Dr. Walton. He received approval today that surgery approved for March 30. He has been going to PT, with 2 more days, and may continue further after. Pain on buttocks, both legs, more left side. When he stretches it, feels very tight on left leg. When he cycles, he gets sharp pain on right leg. When he drives, over potholes, feel sharp pain on right side. Limited left hip abduction compared to right and complain of groin. [facility] Medical History (Updated 07/28/24 @ 09:17 by Kiana George MD) Lumbar disc herniation with radiculopathy Acute lumbar radiculopathy Social History (Updated 02/04/25 @ 08:41 by Jacqueline Myers [facility]) Current occupational status: unemployed Current occupation: rt hand Physical Exam Constitutional: Patient appears to be in no acute distress, well nourished and well developed. Patient was appropriately conversant and oriented. Good historian. MSK: He shows me limited left hip abduction range compared to right, causing left groin pain. Then standing within normal. Neurological: Nonfocal Gait is non-antalgic without loss of balance. Assessment & Plan Assessment & Plan (1) Lumbar disc herniation with radiculopathy: Code(s): M51.16 - Intervertebral disc disorders with radiculopathy, lumbar region Category: Medical (2) Acute lumbar radiculopathy: Code(s): M54.16 - Radiculopathy, lumbar region Category: Medical Plan Surgery planned for March 30 at [facility]. Continue physical therapy to prepare him for surgery. Last work note from me, stating out of work until surgery March 30. After which, I will defer further work recommendations/restrictions to the surgeon. Assessment and plan discussed with patient, and patient was agreeable. All questions were answered thoroughly. If he needs to see me again after surgery, it will need to be a re-evaluation. Kiana George MD, HENRI Board Certified, [place] [employer] and Rehabilitation (ABPMR) Board Certified, [place] Board [employer] Electrodiagnostic Medicine (ABEM) Coding Level of Care Code Est Pt Level 3 (58773) Diagnoses Lumbar disc herniation with radiculopathy M51.16 Acute lumbar radiculopathy M54.16
--- OUTSIDE RECORDS SUMMARY | 2025-03-05 08:56 | XMS_ITS | Clinical Summary ---
Author Organization [facility] [address] [place] [address] [place] [id number] Phone Care Team Providers Care Field Sampling Technician Name Role Phone Jairon Hines MD Primary Care Provider [phone] Allergies No known active allergies Medications baclofen (LIORESAL) 5 mg tablet TAKE 5 MG BY MOUTH 3 TIMES DAILY. 270 tablet 1 10/05/20 24 Active escitalopram (LEXAPRO) 10 mg tablet Take 1 tablet (10 mg total) by mouth 1 (one) time each day. 30 each 5 11/24/20 24 025 Active meloxicam (MOBIC) 15 mg tabletIndicatio ns:Routine physical examination Take 1 tablet (15 mg total) by mouth 1 (one) time each day. 90 tablet 1 01/18/20 25 Active gabapentin (NEURONTIN) 600 mg tablet TAKE 1 TABLET BY MOUTH THREE TIMES A DAY 270 tablet 1 02/19/20 25 Active hydrOXYzine HCL (ATARAX) 25 mg tablet TAKE 1 TABLET (25 MG TOTAL) BY MOUTH 3 TIMES A DAY NEEDED FOR ANXIETY 90 tablet 03/01/20 25 Active gabapentin (NEURONTIN) 600 mg tablet Take 1 Tablet by mouth 3 times daily. 07/16/20 24 025 Discontinued hydrOXYzine HCL (ATARAX) 25 mg tablet TAKE 1 TABLET (25 MG TOTAL) BY MOUTH 3 TIMES A DAY NEEDED FOR ANXIETY 90 tablet 01/06/20 25 025 Discontinued(Re order) Active Problems Problem Noted Date Diagnosed Date Ganglion cyst 03/28/2022 Cervical radiculopathy 03/27/2022 Adjustment disorder with depressed mood 04/22/20 18 Cervicalgia 10/26/2016 Right shoulder injury 02/07/2016 Encounters Date Type Department Care Team Description 02/19/2025 Telephone Adult Medicine [address] [phone] Jairon Hines MD faxed notes 01/18/2025 3:00 PM EST Office Visit [address] [phone] Jairon Hines MD Routine physical examination (Primary Dx); Screening for diabetes mellitus; Screening, lipid; Screening for malignant neoplasm of prostate; Need for vaccination against Streptococcus pneumoniae 12/31/2024 8:00 AM EST Office Visit [address] [phone] Livia Marin PA Lumbar radiculopathy (Primary Dx); Insomnia, unspecified type; Anxiety from Last 3 Months Immunizations Name Administration Dates Next Due Pneumococcal conjugate 20 va lent (Prevnar 20, PCV 20) 2mo and older 01/18/2025 Surgical History Surgery Date Site/Laterality Comments MULTIPLE TOOTH EXTRACTIONS PROCEDURE: HISTORICAL DENTAL EXTRACTION OTHER SURGICAL HISTORY PROCEDURE: [place] UNLISTED PROCEDURE NECK/THORAX; COMMENT: C5 * C67 [...] care for your loved ones. For example, vocational childcare teacher or elderly care for an older adult? [...] 2) 2022 HIV Screening 10/24/2022 COVID-19 Vaccine (2023-2 5 season) 2024 04/11/2021, 03/20/2021 Influenza Vaccine (Season Ended) 2025 Depression Screening 01/18/2026 01/18/2025, 07/04/2024 Social Influencers [...] age to complete this topic Meningococcal B Vaccine Aged Out No l onger eligible based on patient's age to complete [...] EST Screening for malignant neoplasm of prostate HM DEPRESSION SCREENING Routine 07/04/2024 HM COLONOSCOPY Routine 12/25/2023 HEPATITIS C SCREENING Routine 08/26/2023 from Last 3 Months or Most Recently Relevant to Health Maintenance Results * Prostate specific antigen screen (01/18/2025 3:49 PM EST) PSA 2.16 0.00 - 4.00 ng/mL LAB CHEMISTRY METHOD 01/18/2025 6:35 PM EST [facility] Blood Venous blood specimen / Unknown Venipuncture / Unknown 01/18/2025 3:49 PM EST 01/18/2025 3:49 PM EST Narrative [facility] - 01/18/2025 6:35 PM EST The Siemens Advia Centaur Chemiluminescent Immunoassay is used. Results obtained with different assay methods or kits cannot be used interchangeably. Results cannot be interpreted as absolute evidence of the presence or absence of malignant disease. us Jairon Hines MD LAB BLOOD ORDERABLES Final Resu lt [facility] [address] [place] [address], [place] [phone] * (ABNORMAL) Lipid panel with reflex to direct LDL (01/18/2025 3:49 PM EST) Pathologist [facility] Cholesterol 225(H) 0 - 200 mg/dL LAB CHEMISTRY METHOD 01/18/2025 6:23 PM EST [facility] Triglycerides 302(H) 0 - 150 mg/dL LAB CHEMISTRY METHOD 01/18/2025 6:23 PM EST [facility] HDL 60 >=40 mg/dL LAB CHEMISTRY METHOD 01/18/2025 6:23 PM EST [facility] LDL Calculated 105(H) 0 - 100 mg/dL LAB CHEMISTRY METHOD 01/18/2025 6:23 PM EST [facility] VLDL Cholesterol Luis Fernando 60.4 mg/dL LAB CHEMISTRY METHOD 01/18/2025 6:23 PM EST [facility] Non HDL Chol. (LDL+VLDL) 165(H) <145 mg/dL LAB CHEMISTRY METHOD 01/18/2025 6:23 PM EST [facility] Chol/HDL Ratio 3.8 0.0 - 4.4 LAB CHEMISTRY METHOD 01/18/2025 6:23 PM [facility] Blood Venous blood specimen / Unknown Venipuncture / Unknown 01/18/2025 3:49 PM EST 01/18/2025 3:49 PM EST us Jairon Hines MD LAB BLOOD ORDERABLES Final Resu lt [facility] [address] [place] [address], [place] [phone] * CBC auto differential (01/18/2025 3:49 PM EST) [facility] WBC 8.7 4.8 - 10.8 K/mcL LAB HEMETOLOGY METHOD 01/18/2025 6:06 PM EST [facility] RBC 4.90 4.50 - 5.50 M/mcL LAB HEMETOLOGY METHOD 01/18/2025 6:06 PM [facility] Hemoglobin 15.0 13.5 - 17.5 g/dL LAB HEMETOLOGY METHOD 01/18/2025 6:06 PM [facility] Hematocrit 45.2 42.0 - 54.0 % LAB HEMETOLOGY METHOD 01/18/2025 6:06 PM [facility] MCV 91.7 79.0 - 98.0 FL LAB HEMETOLOGY METHOD 01/18/2025 6:06 PM [facility] MCH 30.4 27.0 - 32.0 pcg LAB HEMETOLOGY METHOD 01/18/2025 6:06 PM [facility] MCHC 33.2 32.0 - 37.0 g/dL LAB HEMETOLOGY METHOD 01/18/2025 6:06 PM [facility] RDW 13.6 11.0 - 15.0 % LAB HEMETOLOGY METHOD 01/18/2025 6:06 PM [facility] Platelets 341 130 - 400 K/mcL LAB HEMETOLOGY METHOD 01/18/2025 6:06 PM [facility] MPV 9.5 7.0 - 11.0 FL LAB HEMETOLOGY METHOD 01/18/2025 6:06 PM [facility] NRBC 0.0 <1.0 % LAB HEMETOLOGY METHOD 01/18/2025 6:06 PM [facility] NRBC Absolute 0.00 <0.10 K/mcL LAB HEMETOLOGY METHOD 01/18/2025 6:06 PM [facility] Neutrophils Relative 49.4 % LAB HEMETOLOGY METHOD 01/18/2025 6:06 PM [facility] Lymphocytes Relative 37.9 % LAB HEMETOLOGY METHOD 01/18/2025 6:06 PM [facility] Monocytes Relative 7.6 % LAB HEMETOLOGY METHOD 01/18/2025 6:06 PM [facility] Eosinophils Relative 4.0 % LAB HEMETOLOGY METHOD 01/18/2025 6:06 PM [facility] Basophils Relative 0.8 % LAB HEMETOLOGY METHOD 01/18/2025 6:06 PM [facility] Immature Granulocytes Relative 0.3 % LAB HEMETOLOGY METHOD 01/18/2025 6:06 PM [facility] Neutrophils Absolute 4.27 1.50 - 7.00 K/mcL LAB HEMETOLOGY METHOD 01/18/2025 6:06 PM [facility] Lymphocytes Absolute 3.29 1.00 - 5.00 K/mcL LAB HEMETOLOGY METHOD 01/18/2025 6:06 PM [facility] Monocytes Absolute 0.66 0.20 - 1.00 K/mcL LAB HEMETOLOGY METHOD 01/18/2025 6:06 PM [facility] Eosinophils Absolute 0.35 0.00 - 0.50 K/mcL LAB HEMETOLOGY METHOD 01/18/2025 6:06 PM [facility] Basophils Absolute 0.07 0.00 - 0.20 K/mcL LAB HEMETOLOGY METHOD 01/18/2025 6:06 PM [facility] Immature Granulocytes Absolute 0.03 0.00 - 0.03 K/mcL LAB HEMETOLOGY METHOD 01/18/2025 6:06 PM [facility] Blood Venous blood specimen / Unknown Venipuncture / Unknown 01/18/2025 3:49 PM EST 01/18/2025 3:49 PM EST us Jairon Hines MD LAB BLOOD ORDERABLES Final Resu lt [facility] [address] [place] [address], [place] [phone] * Comprehensive metabolic panel (01/18/2025 3:49 PM EST) Sodium 139 133 - 145 mmol/L LAB CHEMISTRY METHOD 01/18/2025 6:23 PM [facility] Potassium 4.3 3.5 - 5.5 mmol/L LAB CHEMISTRY METHOD 01/18/2025 6:23 PM [facility] Chloride 105 96 - 110 mmol/L LAB CHEMISTRY METHOD 01/18/2025 6:23 PM [facility] CO2 27 21 - 32 mmol/L LAB CHEMISTRY METHOD 01/18/2025 6:23 PM [facility] Anion Gap 7 3 - 11 LAB CHEMISTRY METHOD 01/18/2025 6:23 PM [facility] Glucose 76 70 - 100 mg/dL LAB CHEMISTRY METHOD 01/18/2025 6:23 PM [facility] BUN 12 5 - 25 mg/dL LAB CHEMISTRY METHOD 01/18/2025 6:23 PM [facility] Creatinine 0.90 0.70 - 1.30 mg/dL LAB CHEMISTRY METHOD 01/18/2025 6:23 PM [facility] eGFR 103 >=60 mL/min/1. 73m2 LAB CHEMISTRY METHOD 01/18/2025 6:23 PM [facility] Comment:Calculation based on the??Chronic Kidney Disease Epidemiology Collaboration (CKD-EPI) equation refit??without adjustment for race. BUN/Creatinine Ratio 13.3 LAB CHEMISTRY METHOD 01/18/2025 6:23 PM [facility] Calcium 9.7 8.5 - 10.5 mg/dL LAB CHEMISTRY METHOD 01/18/2025 6:23 PM [facility] AST (SGOT) 25 10 - 42 unit/L LAB CHEMISTRY METHOD 01/18/2025 6:23 PM [facility] ALT (SGPT) 39 10 - 60 unit/L LAB CHEMISTRY METHOD 01/18/2025 6:23 PM EST [facility] Alkaline Phosphatase 86 42 - 121 unit/L LAB CHEMISTRY METHOD 01/18/2025 6:23 PM [facility] Total Protein 7.7 6.0 - 8.0 g/dL LAB CHEMISTRY METHOD 01/18/2025 6:23 PM EST [facility] Albumin 4.3 3.2 - 5.0 g/dL LAB CHEMISTRY METHOD 01/18/2025 6:23 PM [facility] Total Bilirubin 0.5 0.0 - 1.4 mg/dL LAB CHEMISTRY METHOD 01/18/2025 6:23 PM [facility] Blood Venous blood specimen / Unknown Venipuncture / Unknown 01/18/2025 3:49 PM EST 01/18/2025 3:49 PM EST Jairon Hines MD LAB BLOOD ORDERABLES Final Resu lt [facility] [address] [place] [address], * Depression Screening (07/04/2024) Pathologist [facility] Depression Screening Abstracted Historical Provider HEALTH MAINTENANCE Final Result * Colonoscopy (12/25/2023) [facility] Colonoscopy no interpretation , abstracted Anatomical Region Laterality Modality Other Historical Provider HEALTH MAINTENANCE Final Result * Hepatitis C Screening (08/26/2023) [facility] Hepatitis C Screening Abstracted Historical Provider HEALTH MAINTENANCE Final Result from Last 3 Months or Most Recently Relevant to Health Maintenance Insurance [facility] Care Teams Field Sampling Technician Relationship Specialty Start Date End Date Jairon Hines MD [address] [place], [place] [id number] PCP - General Internal Medicine 10/15/17
--- OUTSIDE RECORDS SUMMARY | 2025-03-05 08:56 | XMS_ITS ---
Author Organization Andrzej Martinez MD Address [address] [place] [address] Care Team Providers Care Senior Infrastructure Engineer Name Role Phone Andrzej Martinez Unavailable [phone] REASON FOR VISIT WC Encounters Encounter Location Date Provider Diagnosis [facility] [address] [place] [address] 02/04/2025 Andrzej Martinez Plan Of Treatment No Information Progress Notes * Max CANALESOB:1970 (54 yo M)Acc No.[id number]:02/04/2025 Patient:?Kirk CANALES :1970???Age:54 Y???Sex:Male Address:[address] [place] [address], [address] * true * Date:? Generated for Printi ng/[place]/eTransmitting on:?03/05/2025 08:56 AM EDT
--- OUTSIDE RECORDS SUMMARY | 2025-03-05 08:56 | XMS_ITS | Data Portability ---
Author Organization [facility], [facility] - INPATIENT Address [address] [place] [id number] Care Team Providers Care Nurse Liaison Name Role Phone JACINDA ROBERT Primary Care Provider KIRSTIN OHARA Dope House Operator Helper [phone] Assessment Encounter Date Assessment Date Assessment LastModified by Organization Details LastModified Time 02/05/2025 02/05/2025 IMAGING: I personally reviewed his lumbar spine MRI from July 2024. There is diffuse disc degeneration with severe collapse at L5-S1. At L5-S1, there is a right paracentral bulge that slightly contacts the right S1 nerve root. At L4-5, there is a small right paracentral disc herniation that also slightly narrows the lateral recess on that side at the level of the pedicle. ASSESSMENT: He is a 54-year-old male presents with back and bilateral leg pain following a work injury on 05/25/2024. He has significant back pain, which is worse than his leg pain.His leg pain is radicular and corresponds to L5 and S1 distributions, likely caused by his disc herniations at both levels. He has not responded to conservative treatments, including physical therapy and a lumbar steroid injection. His surgical options at this point are discectomy alone or discectomy and fusion. Discectomy is less effective for back pain than for leg pain. While fusion is more effective for back pain, it is still not guaranteed to address symptoms, is significantly more extensive surgery and carries other senior care implications such as decreased range of motion, risk of non-union and adjacent segment disease, and possibly a lower likelihood of return to a strenuous occupation. PLAN: I recommend proceeding with a microdiscectomy at L4-5 and L5-S1. The patient understands that this procedure may not fully relieve his symptoms, especially the back pain, but it is a less extensive surgery compared to a fusion. If symptoms persist after the microdiscectomy, a revision decompression and instrumentation may be considered. The patient has been advised to stop smoking to improve surgical outcomes. He wishes to proceed with surgery.We will proceed with obtaining approval for the surgery and scheduling it. I spent 45 minutes on the day of the visit, preparing for the visit by reviewing records/test results, obtaining patient history, performing a medically necessary examination, counseling/educati ng the patient on lumbar disc herniation and radiculopathy, interpreting test results. Please note this report was created using voice recognition/text compilation software with [facility] documentation services during the encounter with the patient; Please excuse any errors due to the oil burner mechanic process. [email or web address] Not available 02/05/2025 11:15:27 Plan of Treatment Reminders Order Date Submit Date Provider Last Modified By Organization Details Last Modified Time Details Appointments 120 Surgery 2024 07:00A M ARA Pinto MD Not available Not available Not available 120 Surgery 2024 07:00A M ROSENDO HERRING Not available Not available Not available Lab None recorded . Referral None recorded . Procedures None recorded . Surgeries None recorded . Imaging None recorded . Medication Orders None recorded . Patient TargetsNo targets recorded. Patient InstructionsNo instructions recorded. Reason for Referral None Reported. Procedures Surgical History Date Name Laterality Status Provider Name and Address Organization Details Recorded Time 8 Orthopaedic Surgery completed [facility] 02/05/2025 09:49:09 8 Orthopaedic Surgery completed [facility] 02/05/2025 09:49:19 Imaging Results None recorded. Procedure Notes None recorded. Medical Equipment None Reported. Allergies No known drug allergies Medications Name Sig Start Date Stop Date Status Note LastModified by Organization Details LastModified Time gabapentin 600 mg tablet Take 1 tablet 3 times a day by oral route. active Not Available Not Available No t Available tizanidine 4 mg tablet TAKE 1 TABLET BY MOUTH EVERY 6 HOURS active Not Available Not Available No t Available meloxicam 15 mg tablet Take 1 tablet every day by oral route. active Not Available Not Available No t Available prednisone 20 mg tablet TAKE 2 TABLETS BY MOUTH EVERY DAY active Not Available Not Available No t Available methocarbamol 750 mg tablet TAKE 1 TABLET BY MOUTH EVERY 6 HOURS NEEDED FOR MUSCLE SPASM active Not Available Not Available No t Available hydroxyzine HCl 25 mg tablet Take 1 tablet 3 times a day by oral route. active Not Available Not Available No t Available naproxen 500 mg tablet TAKE 1 TABLET BY MOUTH TWICE A DAY NEEDED FOR MODERATE PAIN *START 7/4 active Not Available Not Available No t Available oxycodone 5 mg tablet TAKE 1 TABLET BY MOUTH EVERY 6 HOURS NEEDED FOR SEVERE PAIN active Not Available Not Available No t Available escitalopram 10 mg tablet Take 1 tablet every day by oral route. active Not Available Not Available No t Available duloxetine 60 mg capsule,delaye d release TAKE 1 CAPSULE BY MOUTH EVERY DAY active Not Available Not Available No t Available baclofen 5 mg tablet Take 1 tablet 3 times a day by oral route. active Not Available Not Available No t Available Vitals Date Recorded Body height Body mass index (BMI) Body weight Provider Name and Address Organization Details Last Updated DateTime 02/05/2025 172.72 cm 25.1 kg/m2 33439.74 g Lynn Bennett [facility] 02/05/2025 09:46:08 Social History Question Answer Notes LastModified by Organizat ion Details LastModified Time Tobacco Smoking Status Current Every Day Smoker [facility] 02/05/2025 09:42:15 What Is Your Level Of Alcohol Consumption? Occasional Information not available 02/05/2025 How Many Times Per Week Do You Consume Alcohol? 1-2 Times Per Week Information not available 02/05/2025 Are You Currently Employed? Yes Information not available 02/05/2025 Do You Or Have You Ever Used E-cigarettes Or Vape? 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 3-4 Times Per Week Stretching Information not available 02/05/2025 Do You Or Have You Ever Used Smokeless Tobacco? Never Used Smokeless Tobacco Information not available 02/05/2025 How Much Tobacco Do You Smoke? 0.5 PPD Information not available 02/05/2025 How Many Years Have You Smoked Tobacco? 30 Information not available 02/05/2025 Sex: Unknown Functional Status Question Answer Note LastModified by Organizat ion Details LastModified Time What is your exercise level? Occasional Information not available 02/05/2025 Mental Status None recorded. Family History Relationship Description Onset Age of this Age Resolved Age Notes LastModified by Organization Details LastModified Time Father No current problems or disability Not available 02/05 09:47:43 Mother No current problems or disability Not available 02/05 09:47:43 Medical History No medical history recorded. Past Encounters Encounter ID Performer Location Encounter Start Date Encounter Closed Date Diagnosis/Indication Diagnosis SNOMED-CT Code Diagnosis ICD10 Code Diagnosis Note [id number] Ara Greer MD [place] [facility] [address] [place] [id number] 02/05/2025 09:15:54 02/05/2025 11:07:02 Health Concerns Section Related Observation LastModified by Organization Detai ls LastModified Time None Recorded Concern Status LastModified by Organization Details LastModified Time None Recorded Advance Directives Directive None Recorded Payers Encounter Date Sequence Insurance Name Policy Number Policy Adkins Covered Member ID Adkins Member ID Guarantor Name 02/05/2025 [facility] Kirk Canales Notes Date Note Type Note Provider Name and Address Organization Details Recorded Time 02/05/2025 text/html Mr. Kirk Canales presents for evaluation of back and bilateral leg pain arising from a work injury that occurred on 05/25/2024. The patient reports that he was injured while moving a refrigerator, which resulted in immediate back pain. Initially, the pain was localized to his back, but within a few minutes, it extended to his legs, particularly the right leg, causing numbness down to the foot. He was in severe enough pain that 'unable to walk' for three days following the injury. Over the past few months, the pain has persisted and now affects both legs, with the right leg being worse. The right leg pain extends down to his foot, while his left leg pain is mostly anterior thigh.. The pain as 70% back pain and 30% leg pain, with the back pain being constant and exacerbated by sitting and lying down. Stretching provides some relief. He also experiences tightness in the left groin area.He has numbness over the dorsum/medial aspect of his left foot. He has a history of neck surgery ([facility]) in 12/2017 and shoulder surgery for a labrum tear. He has been treated with physical therapy, gabapentin, baclofen, and meloxicam. He had an injection at the L5 level, which did not provide significant relief. He has also undergone physical therapy for a month in June 2024, which was discontinued but recently resumed. He is a current smoker. Ara Greer MD [address] [place] [address], [id number], [facility] 02/05/2025 11:15:34
--- OUTSIDE RECORDS SUMMARY | 2025-03-05 08:56 | XMS_ITS | Patient Health Record ---
Author Organization Andrzej Martinez MD Address [address] [place] [address] Care Team Providers Care Strawberry Grower Name Role Phone Andrzej Martinez Unavailable [phone] Reason For Referral No Information Encounters Encounter Location Date Provider Diagnosis [facility] [address] [place] [address] [place] [address] 02/04/2025 Andrzej Martinez Plan Of Treatment No Information
== END 2025-03-05 09:18 | disposition home or self-care (01) ==
LOC: HO.HOS 08:46
PROVIDERS: PCP Physician Assistant Medical; Visit Provider Physical Medicine & Rehabilitation
DX: M51.16 Intervertebral disc disorders with radiculopathy, lumbar region (principal); M54.16 Radiculopathy, lumbar region
CPT/HCPCS: 99213

== ENCOUNTER → 2025-03-05 08:45 | Outpatient (BNVA) | payer OTHER, SELFPAY | PROVIDERS: PCP Physician Assistant Medical; Visit Provider Physical Medicine & Rehabilitation | DX: M51.16 Intervertebral disc disorders with radiculopathy, lumbar region (principal); M54.16 Radiculopathy, lumbar region | CPT/HCPCS: 99212 ==

== ENCOUNTER 2025-03-25 10:01 | Outpatient (RCR) | payer OTHER, SELFPAY ==
--- NOTE | 2025-03-25 10:56 | MHC.PT.DC ---
[facility] [place] [facility] [place] [facility] [place] [facility] [address] Rohan Car [address] [phone] F: [phone] F: [phone] F: [phone] F: [phone] Physical Therapy Discharge Report Diagnosis: LOW BACK PAIN (KP) Date of Surgery: NA Date of Evaluation: 02/18/25 Date of Discharge: 03/25/25 Treatments to Date: 8 Cancellations to Date: 0 No Shows to Date: 0 Discharge Status: Improved Function Independent with HEP Discharge Summary: NATY PRESENTS FOR FINAL PT SESSION TODAY PRIOR TO SURGERY. Pt CONTS TO REQUIRE MIN VC WITH ACTIVITIES TO MAINTAIN APPROPRIATE BODY MECH AND DECREASE PACE OF ACTIVITIES. INDEPENDNET WITH CURRENT HEP. DEMOS STRENGTH IN WHITNEY LEs OF 5/5, ROM IS WNLs T/O L-SPINE AND LE WHITNEY. D/C ON THIS DATE - ANTICIPATING SX IN APROX 3 WEEKS AND WILL CONTACT THIS OFFICE P/O IF FURTHER PT INTERVENTION INDICATED. Electronically signed by: RUBEN FRANCISCO PT DPT Please sign and return to therapist. Thank you for your referral.
== END 2025-03-25 10:55 | disposition home or self-care (01) ==
LOC: HO.PT 10:01
PROVIDERS: PCP Internal Medicine; Visit Provider Physical Medicine & Rehabilitation
DX: M51.16 Intervertebral disc disorders with radiculopathy, lumbar region (principal)
CPT/HCPCS: 97110; 97140; 97162; 97535

== ENCOUNTER 2025-06-02 10:06 | Outpatient (RCR) | payer OTHER, SELFPAY | END 2025-06-02 17:03 | disposition home or self-care (01) | LOC: HO.PT 10:06 | PROVIDERS: PCP Internal Medicine; Visit Provider Physician Assistant | DX: M54.16 Radiculopathy, lumbar region (principal); Z98.890 Other specified postprocedural states | CPT/HCPCS: 97014; 97110; 97112; 97140; 97161; 97530; 97535 ==